=== PATIENT | male | born 1980 | race Caucasian/White ===

== ENCOUNTER 2018-12-15 17:14 | Inpatient (IN) | payer MEDICAID ==
[2018-12-15 17:14] VITALS: BMI 31.9
--- NOTE | 2018-12-15 18:47 | C.PDOC ---
History Of Present Illness 38 year old male presents to the ED requesting heroin and cocaine detox. Patient states he last used cocaine today and heroin yesterday, shooting into his forearms. He denies any forearm pain or drainage or abnl rash from baseline. No fever, chills or night sweats. No neck stiffness. No abdominal pain or chest pain or sob. No back pain. Patient denies suicidal/homicidal ideation and offers no physical complaints at this time. Time Seen by Provider: 12/15/18 18:47 Chief Complaint (Nursing): Substance Abuse History Per: Patient History/Exam Limitations: no limitations Onset/Duration Of Symptoms: Hrs Current Symptoms Are (Timing): Still Present Suicide/Self Injury Attempted (Context): None Modifying Factor(s): Cocaine, Other (heroin) Associated Symptoms: denies: Suicidal Thoughts, Suicidal Plan Involuntary Hold By: None Recent travel outside of the [place]: No Additional History Per: Patient Past Medical History Reviewed: Historical Data, Nursing Documentation, Vital Signs Vital Signs: Last Vital Signs Temp 98.5 F 12/15/18 17:52 Pulse 70 12/15/18 17:52 Resp 18 12/15/18 17:52 BP 119/79 12/15/18 17:52 Pulse Ox 97 12/15/18 17:52 - Medical History PMH: Hepatitis Denies: Diabetes, HIV, HTN, Seizures, Sexually Transmitted Disease Surgical History: No Surg Hx - [facility] DETOXIFICATION SERVICES FOR SUBSTANCE ABUSE TREATMENT (08/20/16) Family History: States: Unknown Family Hx - Social History Hx Alcohol Use: No Hx Substance Use: Yes - Immunization History Hx Tetanus Toxoid Vaccination: No Hx Influenza Vaccination: No Hx Pneumococcal Vaccination: No Review Of Systems Constitutional: Negative for: Fever, Chills Eyes: Negative for: Pain, Vision Change ENT: Negative for: Ear Pain, Ear Discharge, Nose Pain, Nose Discharge, Nose Congestion, Mouth Pain, Throat Pain Cardiovascular: Negative for: Chest Pain, Edema, Light Headedness Respiratory: Negative for: Cough, Shortness of Breath, SOB with Excertion, Pleuritic Pain Gastrointestinal: Negative for: Nausea, Vomiting, Abdominal Pain, Diarrhea, Constipation, Melena, Hematochezia Genitourinary: Negative for: Dysuria, Frequency, Incontinence, Hematuria, Penile Discharge Musculoskeletal: Negative for: Neck Pain, Shoulder Pain Neurological: Negative for: Weakness, Numbness, Seizures, Headache Psych: Positive for: Other (heroin and cocaine detox ). Negative for: Suicidal ideation Physical Exam - Physical Exam Appears: Well, Non-toxic, No Acute Distress Skin: Normal Color, Warm, Dry, Other (mild indurated area, chronic injection site to b/l forearm. No fluctuance noted. Mildly tender. No streaking. N/v intact distally. No hard compartments) Head: Atraumatic, Normacephalic Eye(s): bilateral: Normal Inspection Nose: Normal Oral Mucosa: Moist Tongue: Normal Appearing Lips: Normal Appearing Teeth: Normal Dentition Gingiva: Normal Appearing Throat: Normal, No Erythema, No Exudate, No Drooling Neck: Normal, Normal ROM, Supple, Other (no meningeal signs) Lymphatic: Normal Exam Chest: Symmetrical, No Deformity, No Tenderness Cardiovascular: Rhythm Regular Respiratory: No Accessory Muscle Use Gastrointestinal/Abdominal: Normal Exam, Soft Back: Normal Inspection, No CVA Tenderness, No Vertebral Tenderness Extremity: Normal ROM, No Swelling, Other (b/l rash to injection site on forearms, mildly erythematous without crepitus. ) Extremity: Bilateral: Normal ROM Pulses: Left Radial: Normal, Right Radial: Normal, Left Dorsalis Pedis: Normal, Right Dorsalis Pedis: Normal Neurological/Psych: Oriented x3, Normal Speech, Normal Cognition, No Cerebellar Signs, Normal Motor Gait: Steady ED Course And Treatment - Laboratory Results Result Diagrams: 12/15/18 19:18 12/15/18 19:18 O2 Sat by Pulse Oximetry: 97 (on RA) Pulse Ox Interpretation: Normal Medical Decision Making Medical Decision Makin yr old male p/w detox from cocaine and heroine. No signs of withdrawal. No fall or trauma. No meningeal signs. Progress: Bloodwork and urinalysis ordered and reviewed. 2111 labs reviewed, largely unremarkable b/l UE injection sites w/ out abscess or crepitus mild cellulitis will rx No septic labs. medically clear accepted to Dr. Paredes service to Detox per crisis Disposition - Disposition Disposition: HOSPITALIZED Disposition Time: 21:17 Condition: GOOD - Clinical Impression Clinical Impression: Cellulitis, Desire for detoxification - Scribe Statement The provider has reviewed the documentation as recorded by the Scribe (Nora Song) Provider Attestation: All medical record entries made by the Scribe were at my direction and personally dictated by me. I have reviewed the chart and agree that the record accurately reflects my personal performance of the history, physical exam, medical decision making, and the department course for this patient. I have also personally directed, reviewed, and agree with the discharge instructions and disposition.
[2018-12-15 19:18] LABS: SQUAMOUS EPITHIAL < 1 /hpf (0-5); URINE BACTERIA RARE (<OCC); URINE BILIRUBIN NEGATIVE (NEGATIVE); URINE BLOOD NEGATIVE (NEGATIVE); URINE CALCIUM OXALATE CRYSTALS FEW /hpf (<OCC); URINE CLARITY Hazy (Clear); URINE COLOR Yellow (YELLOW); URINE GLUCOSE (UA) NORMAL (Normal); URINE LEUKOCYTE ESTERASE NEG Leu/uL (Negative); URINE PROTEIN NEGATIVE (NEGATIVE)
[2018-12-15 19:24] LABS: BASO % 0.5 % (0.0-2.0); EOS # 0.1 K/uL (0.0-0.7); HEMOGLOBIN 14.1 g/dL (12.0-18.0); LYMPH # 1.8 K/uL (1.0-4.3); LYMPH % 27.6 % (20.0-40.0); MEAN CORPUSCULAR HEMOGLOBIN 25.7 pg (27.0-31.0); MEAN CORPUSCULAR HGB CONC 31.3 g/dL (33.0-37.0); MEAN PLATELET VOLUME 9.3 fL (7.2-11.7); MONO # 0.3 K/uL (0.0-0.8); MONO % 4.4 % (0.0-10.0); NEUT # 4.3 K/uL (1.8-7.0); NEUT % 65.5 % (50.0-75.0); NRBC % 0.1 % (0.0-2.0); RBC 5.47 Mil/uL (4.40-5.90); RED CELL DISTRIBUTION WIDTH 14.3 % (11.5-14.5); WHITE BLOOD COUNT 6.6 K/uL (4.8-10.8)
[2018-12-15 19:42] LABS: BARBITURATES, UR NEGATIVE (NEGATIVE); BENZODIAZEPINES, UR NEGATIVE (NEGATIVE); OPIATES, UR POSITIVE (NEGATIVE); PHENCYCLIDINE, UR NEGATIVE (NEGATIVE)
[2018-12-15 20:29] LABS: ACETAMINOPHEN < 10.0 ug/mL (10.0-30.0); SALICYLATE < 1.0 mg/dL 1
[2018-12-15 20:57] LABS: BLOOD UREA NITROGEN 15 mg/dL (9-20); CALCIUM 9.5 mg/dl (8.6-10.4); GFR NON-AFRICAN AMERICAN > 60
[2018-12-15 20:58] LABS: ALB/GLOB RATIO 1.1 (1.0-2.1); ALBUMIN 4.7 g/dL (3.5-5.0); ALT/SGPT 65 U/L (21-72); AST/SGOT 64 U/L (17-59)
--- NOTE | 2018-12-15 21:59 | PCM.BM ---
<Maira Arreguin - Last Filed: 12/15/18 21:57> Treatment Plan Problems - Problems identified on initial assessmt Denial Date Initiated: 12/15/18 Time Initiated: 21:58 Assessment reference: NA Status: Active Defensive Coping Date Initiated: 12/15/18 Time Initiated: 21:58 Assessment reference: NA Chronic low Esteem Date Initiated: 12/15/18 Time Initiated: 21:59 Assessment reference: NA Treatment assets and liabiliti Patient Assests: ADL independent, negotiates basic needs, cognitively intact Patient Liabilities: substance abuse - Milieu Protocol Maintain good personal hygiene: daily Encourage regular showers, daily Remind patient to perform daily oral care, daily Assist patient to perform ADL's Conduct patient checks and document Observation sheet: Q15 minutes Maintain personal safety: every shift Educate patient to report safety concerns to staff, every shift Monitor environment for contraband/sharps Medication safety: Monitor for expected outcome, potential side effects: every shift, Assess barriers to learning: every shift, Assess readiness for medication education: every shift <Sharmaine Mckeon - Last Filed: 12/16/18 11:59> Family Contact Family involvement: Family/SO is involved Family contact name: Family contacted how many times per week?: 2 - Goals for Treatment Patient goals for treatment: Complete detox and apply for short-term rehab. Discharge/Continuing Care - Education Needs Education Needs: Patient Medication, Patient Diagnosis/Disease Process, Patient Coping Skills, Patient Anger Management skills, Patient Placement options, Patient Community resources, Significant Other Diagnosis/Disease Process, Signif icant Other Community resources - Discharge Discharge Criteria: No longer exhibiting s/s of withdrawal, Reduction of target symptoms Discharge to:: Substance Abuse Rehab - Treatment Team Participation Patient/Family/SO Statement: 12/16/18 11:58 "I can only go in for short term. I have to get back to work as a [employer]." Discussed with Family/SO: No Was Patient/Family/SO present at Treatment Team Meeting: Yes
--- NOTE | 2018-12-16 18:32 | PCM.PSYCH ---
Initial Psychiatric Evaluation - Initial Psychiatric Evaluation Type of Admission: Voluntary Legal Status: Capacity Chief Complaint (in patient's own words): "I have to stop this" History of Present Illness and Precipitating Events: This is a 38 year old male. Chadian translation services were used to obtain history ([id number]). Patient is currently , living with his and young son, and working at a [employer] and presented for heroin detox. Patient reports he began using heroin, cocaine, and marijuana at age 14 in [place]. He immigrated from [place] 6 years ago. His heroin use has been consistent, while cocaine and marijuana use has been on and off. Patient states he continues to use drugs because he likes the way it feels. Patient states last using heroin two days ago and cocaine yesterday. He is experiencing withdrawal symptoms of chills, sweating, stomach pain, nausea, muscle pain, and weakness. Patient denies homicidal or suicidal ideations, auditory or visual hallucinations, or paranoia. He injects 10-20 bags of heroin and 2-3 bags of cocaine per day for the last 25 years into his bilateral forearms. Patient smokes pack per day for the last 30 years. Patient denies alcohol, marijuana, cocaine, benzodiazepine, and methamphetamine use. Patient confirms prior detox at [facility] in August 2016. Patient confirms prior hospitalization at [facility] for psychiatric illness, and 4 hospitalizations in [place] for depression and bipolar disorder. Patient confirms he was on maintenance therapy with methadone and Subutex, but stopped 2 years ago. Psych Hx: major depressive disorder, bipolar disorder Fam Psych: mother has dementia PMHx: untreated HCV Meds: fluoxetine, trazodone, multivitamin Allergies: denies SurgHx: denies Current Medications: Active Medications Generic Name Dose Route Start Last Admin Trade Name Freq PRN Reason Stop Dose Admin Clindamycin HCl 300 mg 12/16/18 10:00 12/16/18 17:51 Cleocin PO 300 mg TID SUSY Administration Protocol Clonidine HCl 0.1 mg 12/15/18 22:04 Catapres PO Q8 PRN opiate withdrawal Hydroxyzine HCl 25 mg 12/15/18 22:02 12/16/18 17:51 Atarax PO 25 mg Q6 PRN Administration Anxiety Ibuprofen 600 mg 12/16/18 10:11 Motrin Tab PO Q6H PRN Pain, moderate (4-7) Influenza Virus Vaccine 60 mcg 12/18/18 10:00 Flucelvax Quad [id number] Syr IM 12/18/18 10:01 .ONCE ONE Pneumococcal Polyvalent Vaccine 0.5 ml 12/18/18 10:00 Pneumovax 23 Vaccine IM 12/18/18 10:01 .ONCE ONE Trazodone HCl 50 mg 12/15/18 22:02 Desyrel PO HS PRN Insomnia Past Psychiatric History - Past Psychiatric History Pertinent Medical Hx (Current Medical&Sleep Prob, Allergies): Allergies Allergy/AdvReac Type Severity Reaction Status Date / Time No Known Allergies Allergy Verified 08/20/16 13:39 FLUoxetine [Prozac] 20 mg PO DAILY #30 cap 08/23/16 Multivitamins [Hexavitamin] 1 tab PO DAILY #30 tab 08/23/16 traZODone [Desyrel] 100 mg PO HS PRN #30 tab 08/23/16 Review of Systems - Psychiatric Psychiatric: Abnormal Sleep Pattern, Anhedonia, Anxiety, Difficulty Concentrating. absent: Homicidal Ideation, Suicidal Ideation Mental Status Examination - Personal Presentation Personal Presentation: Looks stated age - Affect Affect: Constricted - Motor Activity Motor Activity: Calm - Reliability in Providing Information Reliability in Providing Information: Good - Speech Speech: Organized - Mood Mood: Depressed, Anxious - Formal Thought Process Formal Thought Process: No Impairment - Cognitive Functions Orientation: Person, Place, Situation, Time Sensorium: Alert Attention/Concentration: Attentive Estimate of Intelligence: Average Judgement: Intact, as evidence by: Insight regarding need for hospitalization Memory: Recent intact, as evidence by: Ability to recall events of the day, Remote intact, as evidenced by: Abilit to recall sig. life events - Risk Risk: Withdrawal, Diminished functioning - Strength & Assets Inventory Strength & Assets Inventory: Cooperative - Limitations Limitations: Other DSM 5 DX - DSM 5 DSM 5 Diagnosis: Opioid use disorder, severe Opioid withdrawal Cocaine use disorder, severe Major depressive disorder - Recommended/Plan of Treatment Treatment Recommendations and Plan of Treatment: Taper with methadone Prozac for depression Gabapentin for augmentation if needed As needed medications Clonidine, Atarax, and Motrin Trazodone for insomnia Clindamycin for skin infection All risks, benefits and alternatives of the meds discussed, and the pt agreed and understood. Attend groups and activities Supportive therapy and psychoeducation [place] for abstinence CBT for relapse prevention Encourage MAT Encourage grief counseling Refer to outpatient rehab or IOP, and self-help groups; patient prefers [facility] inpatient rehab Teach healthy lifestyle methods, i.e. diet, exercise, meditation Smoking cessation with [place] Nicotine patch 34 minutes Projected ELOS: 4-5 days - Smoking Cessation Smoking Cessation Initiated: Yes
--- NOTE | 2018-12-17 12:46 | PCM.PYCHPN ---
Psychiatric Progress Note - Psychiatric Progress Note Patient seen today, length of contact: 16 min Patient Chief Complaint: "I am OK" Problems Identified/Issues Discussed: The pt is seen, chart reviewed, case is discussed with staff. The pt is compliant with medications and reports no side-effects. Symptoms are improving but needs more time to stabilize and to avoid relapse. Pt attends groups and activities. Support given, psycho-education provided. After care discussed. Medication Change: Yes (detox changes daily) Medical Record Reviewed: Yes Mental Status Examination - Cognitive Function Orientation: Person, Place, Situation, Time Memory: Intact Attention: WNL Concentration: Poor Association: WNL Fund of Knowledge: WNL - Mood Mood: Depressed, Anxious - Affect Affect: Constricted - Speech Speech: Appropriate - Formal Thought Process Formal Thought Process: No Impairment - Suicidal Ideation Suicidal Ideation: No - Homicidal Ideation Homicidal Ideation: No Goal/Treatment Plan - Goal/Treatment Plan Need for Continued Stay: Discharge may exacerbated symptoms, Severe functional impairment Progress Toward Problem(s) and Goals/Treatment Plan: Taper with methadone Prozac for depression Gabapentin for augmentation if needed As needed medications Clonidine, Atarax, and Motrin Trazodone for insomnia Clindamycin for skin infection All risks, benefits and alternatives of the meds discussed, and the pt agreed and understood. Attend groups and activities Supportive therapy and psychoeducation [place] for abstinence CBT for relapse prevention Encourage MAT Encourage grief counseling Refer to outpatient rehab or IOP, and self-help groups; patient prefers [facility] rehab Teach healthy lifestyle methods, i.e. diet, exercise, meditation Smoking cessation with [place] Nicotine patch
[2018-12-18] MEDS ORDERED: Influenza Vaccine 60 mcg/0.5 mL SYR (4YR UP) IM ONE (10:00)
[2018-12-18] MEDS ORDERED: Pneumococcal 23-Valent Vaccine IM ONE (10:00)
[2018-12-19 06:43] VITALS: O2SAT 96
--- NOTE | 2018-12-19 09:11 | PCM.PYCHPN ---
Psychiatric Progress Note - Psychiatric Progress Note Patient seen today, length of contact: 18 min Patient Chief Complaint: "I cannot sleep well" Problems Identified/Issues Discussed: The pt is seen, chart reviewed, case is discussed with staff. Support and psychoeducation given, CBT and [place] used briefly The pt is improving slowly but needs more time due to severity of symptoms and relapse risk. No SEs from medications, risks discussed. After care discussed Medication Change: Yes (detox changes daily) Medical Record Reviewed: Yes Mental Status Examination - Cognitive Function Orientation: Person, Place, Situation, Time Memory: Intact Attention: WNL Concentration: Poor Association: WNL Fund of Knowledge: WNL - Mood Mood: Depressed, Anxious - Affect Affect: Constricted - Speech Speech: Appropriate - Formal Thought Process Formal Thought Process: No Impairment - Suicidal Ideation Suicidal Ideation: No - Homicidal Ideation Homicidal Ideation: No Goal/Treatment Plan - Goal/Treatment Plan Need for Continued Stay: Discharge may exacerbated symptoms, Severe functional impairment Progress Toward Problem(s) and Goals/Treatment Plan: Taper with methadone Prozac for depression Gabapentin for augmentation if needed As needed medications Clonidine, Atarax, and Motrin Trazodone for insomnia Clindamycin for skin infection All risks, benefits and alternatives of the meds discussed, and the pt agreed and understood. Attend groups and activities Supportive therapy and psychoeducation [place] for abstinence CBT for relapse prevention Encourage MAT Encourage grief counseling Refer to outpatient rehab or IOP, and self-help groups; [facility] Teach healthy lifestyle methods, i.e. diet, exercise, meditation Smoking cessation with [place] Nicotine patch
--- NOTE | 2018-12-19 09:15 | PCM.PYCHDC ---
Mental Status Examination - Mental Status Examination Orientation: Person Discharge Summary - Discharge Note Consultations:: List each consultation separately and include: 1. Reason for request. 2. Findings. 3. Follow-up Summary of Hospital Course include:: 1. Description of specific treatment plan utilized for patients during their course of treatmen. 2. Summarize the time- course for resolution of acute symptoms and/or regressed behaviors. 3. Describe issues identified and worked on during hospitalization. 4. Describe medication utilized. 5. Describe medical problems identified and treated. 6. Reassessment of suicide risk Summary of Hospital Course: This is a 38 year old male. Welsh translation services were used to obtain history ([id number]). Patient is currently , living with his and young son, and working at a [employer] and presented for heroin detox. Patient reports he began using heroin, cocaine, and marijuana at age 14 in [place]. He immigrated from [place] 6 years ago. His heroin use has been consistent, while cocaine and marijuana use has been on and off. Patient states he continues to use drugs because he likes the way it feels. Patient states last using heroin two days ago and cocaine yesterday. He is experiencing withdrawal symptoms of chills, sweating, stomach pain, nausea, muscle pain, and weakness. Patient denies homicidal or suicidal ideations, auditory or visual hallucinations, or paranoia. He injects 10-20 bags of heroin and 2-3 bags of cocaine per day for the last 25 years into his bilateral forearms. Patient smokes pack per day for the last 30 years. Patient denies alcohol, marijuana, cocaine, benzodiazepine, and methamphetamine use. Patient confirms prior detox at [facility] in August 2016. Patient confirms prior hospitalization at [facility] for psychiatric illness, and 4 hospitalizations in [place] for depression and bipolar disorder. Patient confirms he was on maintenance therapy with methadone and Subutex, but stopped 2 years ago. Psych Hx: major depressive disorder, bipolar disorder Fam Psych: mother has dementia PMHx: untreated HCV Meds: fluoxetine, trazodone, multivitamin Allergies: denies SurgHx: denies He will go to [facility] - Final Diagnosis (DSM 5) Condition upon Discharge: GOOD Disposition: HOME/ ROUTINE Follow-up Treatment Plan: Taper with methadone Prozac for depression Gabapentin for augmentation if needed As needed medications Clonidine, Atarax, and Motrin Trazodone for insomnia Clindamycin for skin infection All risks, benefits and alternatives of the meds discussed, and the pt agreed and understood. Attend groups and activities Supportive therapy and psychoeducation [place] for abstinence CBT for relapse prevention Encourage MAT Encourage grief counseling Refer to outpatient rehab or IOP, and self-help groups; patient prefers [facility] inpatient rehab Teach healthy lifestyle methods, i.e. diet, exercise, meditation Smoking cessation with [place] Nicotine patch 34 minutes Prescriptions/Medication Reconciliation: Clindamycin [Cleocin] 300 mg PO TID #30 cap FLUoxetine [Prozac] 20 mg PO DAILY #30 cap Gabapentin [Neurontin] 300 mg PO TID #90 cap traZODone [Desyrel] 100 mg PO HS PRN #30 tab PRN Reason: Insomnia
[2018-12-19 09:26] VITALS: BP 127/73; PULSE 60; RESP 18; TEMP 98.4
== END 2018-12-19 10:40 | disposition home or self-care (01) | DRG 745 ==
LOC: C.ER 17:14 → UNDOADMIN 21:16 → C.7D 21:16 → C.ER 22:07 → C.7D 12-16 09:47 → C.7T 12-16 09:47 → C.7D 12-16 09:51 → C.7T 12-16 09:51 → C.7D 12-16 11:39
PROC: HZ2ZZZZ Detoxification Services for Substance Abuse Treatment (ICD-10-PCS; principal; 2018-12-15)
PROC: HZ81ZZZ Medication Management for Substance Abuse Treatment, Methadone Maintenance (ICD-10-PCS; 2018-12-15)
PROC: GZ3ZZZZ Medication Management (ICD-10-PCS; 2018-12-15)
PROC: HZ80ZZZ Medication Management for Substance Abuse Treatment, Nicotine Replacement (ICD-10-PCS; 2018-12-15)
PROC: HZ46ZZZ Group Counseling for Substance Abuse Treatment, Psychoeducation (ICD-10-PCS; 2018-12-15)
PROC: HZ59ZZZ Individual Psychotherapy for Substance Abuse Treatment, Supportive (ICD-10-PCS; 2018-12-15)
DX: F11.23 Opioid dependence with withdrawal (principal); F14.20 Cocaine dependence, uncomplicated; F12.90 Cannabis use, unspecified, uncomplicated; F32.9 Major depressive disorder, single episode, unspecified; F17.210 Nicotine dependence, cigarettes, uncomplicated; G47.00 Insomnia, unspecified; L08.9 Local infection of the skin and subcutaneous tissue, unspecified; Z81.8 Family history of other mental and behavioral disorders